=== PATIENT | female | born 1980 | race Caucasian/White ===

== ENCOUNTER 2019-11-26 08:18 | Outpatient (CLI) | payer OTHER | END 2019-11-26 08:19 | disposition home or self-care (01) | LOC: SONOGRAMA 08:18 | DX: E04.1 Nontoxic single thyroid nodule (principal) ==

== ENCOUNTER 2023-01-10 08:43 | Outpatient (CLI) | payer OTHER | END 2023-01-10 08:46 | disposition home or self-care (01) | LOC: SONOGRAMA 08:43 | PROVIDERS: ATTEND Pathology Anatomic Pathology & Clinical Pathology | DX: D34 Benign neoplasm of thyroid gland (principal); E04.9 Nontoxic goiter, unspecified; E04.8 Other specified nontoxic goiter ==